=== PATIENT | male | born 1995 | race Caucasian/White ===

== ENCOUNTER 2020-01-05 18:33 | Emergency (ER) | payer BC ==
--- NOTE | 2020-01-05 19:22 | EDM.PDOC ---
ED HPI GENERAL MEDICAL PROBLEM - General Chief Complaint: Lower Extremity Injury/Pain Stated Complaint: LEFT ANKLE SWELLING Time Seen by Provider: 01/05/20 19:00 Source of Information: Reports: Patient History Limitations: Reports: No Limitations - History of Present Illness INITIAL COMMENTS - FREE TEXT/NARRATIVE: Patient comes in emergency department with concerns of left lower ankle injury. Patient states that he was playing basketball and came down on his left ankle causing it to twist and he states that he heard a popping and snapping sensation. After the injury the patient states he was unable to bear weight. He states that he has CMS intact however he states that he is not able to bear weight or move his ankle in any direction due to the severe pain. He also st ates that he notices significant moderate swelling occur initially right after the injury. Prior to arrival he did try icing the lower extremity. He also took some Aleve and states that both remedies did help with the discomfort. He states that the pain is pretty minimal if he is not moving it however he states that it is significant amount of pain and discomfort if he tries to move it or to bear weight. Patient denies any other concerns or complaints and states that that lower left extremity has had multiple sprains in the past. Patient denies any chest pain, shortness of breath, dizziness, lightheadedness, fever, cold/congestion, abdominal pain, concerns, or peripheral edema. Patient states been relatively healthy nausea no symptoms of Covid19 or any recent positive findings. Onset: Sudden Duration: Constant Location: Reports: Lower Extremity, Left Quality: Reports: Throbbing Severity: Moderate Improves with: Reports: Immobilization Worsens with: Reports: Movement Treatments NURSE LEADER: Reports: Acetaminophen Left Ankle Pain Score (Numeric/FACES): 7 - Related Data Allergies Allergy/AdvReac Type Severity Reaction Status Date / Time amoxicillin Allergy Cannot Verified 01/05/20 18:51 Remember Home Meds: Home Meds . [No Known Home Meds] 01/05/20 [History] Past Medical History - Past Health History Medical/Surgical History: Denies Medical/Surgical History Social & Family History - Tobacco Use Tobacco Use Status *Q: Never Tobacco User Review of Systems - Review of Systems Review Of Systems: Comprehensive ROS is negative, except as noted in HPI. Constitutional: Reports: No Symptoms Eyes: Reports: No Symptoms Ears: Reports: No Symptoms Nose: Reports: No Symptoms Mouth/Throat: Reports: No Symptoms Respiratory: Reports: No Symptoms Cardiovascular: Reports: No Symptoms GI/Abdominal: Reports: No Symptoms Genitourinary: Reports: No Symptoms Skin: Reports: No Symptoms Neurological: Reports: No Symptoms Psychiatric: Reports: No Symptoms ED EXAM, GENERAL - Physical Exam Exam: See Below Exam Limited By: No Limitations General Appearance: Alert, WD/WN, No Apparent Distress Head: Atraumatic, Normocephalic Respiratory/Chest: No Respiratory Distress, No Accessory Muscle Use, Chest Non- Tender Cardiovascular: Normal Peripheral Pulses, Regular Rate, Rhythm, No Edema Peripheral Pulses: 4+: Dorsalis Pedis (L), Dorsalis Pedis (R) Extremities: Other (left ankle- mod swelling, CMS intact. ROM limited due to pain . No echymosis, redness, or deformity noted. ) Neurological: Alert, Oriented, CN II-XII Intact, Normal Cognition Skin Exam: Warm, Dry, Intact, Normal Color Course - Vital Signs Last Recorded V/S: Last Vital Signs Temp 37.4 C 01/05/20 18:40 Pulse 89 01/05/20 18:40 Resp 16 01/05/20 18:40 BP 120/51 L 01/05/20 18:40 Pulse Ox 98 01/05/20 18:40 Departure - Departure Time of Disposition: 19:30 Disposition: Home, Self-Care 01 Condition: Good Clinical Impression: Moderate left ankle sprain Qualifiers: Encounter type: initial encounter Qualified Code(s): S93.402A - Sprain of u nspecified ligament of left ankle, initial encounter - Discharge Information *PRESCRIPTION DRUG MONITORING PROGRAM REVIEWED*: Not Applicable *COPY OF PRESCRIPTION DRUG MONITORING REPORT IN PATIENT LEISA: Not Applicable Instructions: Ankle Sprain With Phase II Rehab-SportsMed, Cast or Splint Care, Adult, [id number] Referrals: PCP,None [Primary Care Provider] - Forms: ED Department Discharge Additional Instructions: 1. Rest 2. wear splint for 5-7 days as needed to help with any pain or discomfort 3. Can use tylenol and ibuprofen as needed for pain and discomfort 4. Diet as tolerated 5. Activity as tolerated 6. Elevated the injured area above the level of the heart to decrease swelling and discomfort. 7. Use ice 3-4 times a day at 20-minute intervals to help with any swelling and discomfort 8. Follow-up with your primary care provider symptoms continue or to progress 9. Follow with any questions or concerns 10. Discharge information has been provided regarding your injury Sepsis Event Note (ED) - Evaluation Sepsis Screening Result: No Definite Risk - Assessment/Plan Assessment:: 1. left ankle sprain Plan: 1. X-ray completed in the emergency department results reviewed with the patient 2. Ice Applied to the affected limb 3. Medication offered to the patient 4. Air splint applied for support and comfort 5. Education regarding splinting, activity, [id number] medications, and follow-up care provided. 6. All questions and concerns addressed with the patient prior to discharge
--- NOTE | 2020-01-05 19:29 | CR ---
[id number] RAD/RAD Ankle Left 3V Min EXAM: 3 VIEWS LEFT ANKLE. INDICATION: INJURY, SWELLING COMPARISON: None. DISCUSSION: No fracture, dislocation or other acute osseous abnormality. Soft tissue edema adjacent to lateral malleolus. Ankle mortise is maintained. IMPRESSION: 1. Soft tissue edema adjacent to the lateral malleolus. No definite acute osseous abnormalities. Ming Lopez DO 01/05/20 1928 Thank you for allowing us to participate in the care of your patient.
== END 2020-01-05 19:45 | disposition home or self-care (01) ==
LOC: VM.ED 18:33
DX: S93.402A Sprain of unspecified ligament of left ankle, initial encounter (principal); Z88.1 Allergy status to other antibiotic agents; Y93.67 Activity, basketball; X50.1XXA Overexertion from prolonged static or awkward postures, initial encounter
CPT/HCPCS: 73610-LT; 99283; 99283-25